=== PATIENT | male | born 1965 ===

== ENCOUNTER 2016-06-12 19:57 | Emergency (ER) | payer OTHER ==
[2016-06-12 20:02] VITALS: BP 121/74
[2016-06-12] MEDS ORDERED: Tetan/Diph/Pertus SYR(Tdap)* 0.5 ML SYR(BOOSTRIX) use SYR IM ONE ×2 (21:16→21:17)
--- NOTE | 2016-06-13 03:34 | ED ---
Throat Pain/Nasal Congestion - History of Current Complaint Chief Complaint: EDEyeProblem Time Seen by Provider: 06/12/16 20:09 - Allergies/Home Medications Allergies/Adverse Reactions: Allergies Allergy/AdvReac Type Severity Reaction Status Date / Time No Known Allergies Allergy Verified 06/12/16 20:03 PMH/Surg Hx/FS Hx/Imm Hx Infectious Disease History: No Infectious Disease History: Denies: Traveled Outside the [place] in Last 30 Days - Social History Alcohol Use: None Substance Use Type: Reports: None Smoking Status (MU): Never Smoked Tobacco Physical Exam Vital Signs On Initial Exam: Initial Vitals Temp Pulse Resp BP Pulse Ox 98.7 F 57 15 121/74 100 06/12/16 19:58 06/12/16 19:58 06/12/16 19:58 06/12/16 19:58 06/12/16 19:58 Diagnostics - Vital Signs Vital Signs Temp Pulse Resp BP Pulse Ox 06/12/16 21:27 48 15 06/12/16 21:21 48 100 06/12/16 20:02 98.7 F 57 14 121/74 100 06/12/16 19:58 98.7 F 57 15 121/74 100 - Laboratory Lab Statement: Any lab studies that have been ordered have been reviewed, and results considered in the medical decision making process. EENT Course/Dx - Diagnoses Provider Diagnoses: FB (foreign body) of eyelid Discharge - Discharge Plan Condition: Stable Disposition: HOME Patient Education Materials: Eye Foreign Body (ED) Referrals: Non Staff,Doctor [Primary Care Provider] - Additional Instructions: Watch for signs of infection, redness, increased swelling, discharge, warmth and fever/chills. Ice area as it will be sore and may become more swollen. Follow up with PCP.
== END 2016-06-12 21:27 | disposition home or self-care (01) ==
LOC: ED 19:57
DX: T15.90XA Foreign body on external eye, part unspecified, unspecified eye, initial encounter (principal); X58.XXXA Exposure to other specified factors, initial encounter; Y93.9 Activity, unspecified; Y92.9 Unspecified place or not applicable
CPT/HCPCS: 90471; 90715; 99281